=== PATIENT | male | born 1960 | race Caucasian/White ===

== ENCOUNTER 2018-12-14 11:02 | Emergency (ER) | payer SELFPAY ==
[~2018-12-14] VITALS: Ht 177.8 cm; Wt 77.1 kg
[~2018-12-14 11:02] MED LIST: ASPI81CH PO; ATOR80 PO; CLOP75 PO; HYDACE5 PO; IBUP600 PO; LISI20 PO; METO25 PO; RXCLIN PO; SULTRIDS PO
[2018-12-14 11:37] LABS: BASOPHILS ABSOLUTE AUTO 0.09 K/mm3 (0.00-0.23); BASOPHILS PERCENT AUTO 2 % (0-2); EOSINOPHILS PERCENT AUTO 4 % (0-6); Hematocrit 42.8 % (37.0-53.0); Hemoglobin 14.3 g/dL (13.5-17.5); IMMATURE GRAN ABSOLUTE AUTO 0.01 K/mm3 (0.00-0.10); IMMATURE GRAN PERCENT AUTO 0 % (0-1); LYMPHOCYTES ABSOLUTE AUTO 1.23 K/mm3 (0.84-5.20); LYMPHOCYTES PERCENT AUTO 27 % (21-46); MONOCYTES ABSOLUTE AUTO 0.34 K/mm3 (0.16-1.47); MONOCYTES PERCENT AUTO 7 % (4-13); Mean Corpuscular HGB 31.5 pg (26.0-34.0); Mean Corpuscular HGB Conc 33.4 g/dL (31.5-36.5); Mean Corpuscular Volume 94 fL (80-100); Mean Platelet Volume 9.1 fL (9.1-12.4); NEUTROPHILS ABSOLUTE AUTO 2.76 K/mm3 (1.96-9.15); NEUTROPHILS PERCENT AUTO 60 % (41-73); Platelet Count 206 K/mm3 (150-400); RDW Coefficient Variation 13.2 % (11.7-14.2); RDW Standard Deviation 46.1 fL (35.1-46.3); Red Blood Cell Count 4.54 M/mm3 (4.30-5.90); White Blood Cell Count 4.63 K/mm3 (4.00-11.30)
[2018-12-14 12:07] LABS: Alanine Aminotransfer (ALT/SGP 18 U/L (12-78); Albumin/Globulin Ratio 1.3 (0.8-1.8); Alk Phos 52 U/L (50-136); Anion Gap 6 mmol/L (6-16); Aspartate Aminotrans (AST/SGOT 12 U/L (12-37); Bilirubin, Total 0.4 mg/dL (0.1-1.0); Blood Urea Nitrogen 15 mg/dL (8-24); Bun/Creatinine Ratio 17.5 (12.0-20.0); CO2, Blood 27 mmol/L (21-32); Calcium, Blood 8.2 mg/dL (8.5-10.1); Chloride, Blood 108 mmol/L (98-108); Creatinine, Blood 0.86 mg/dL (0.60-1.20); Globulin, Blood 3.1 g/dL (2.2-4.0); Glomerular Filtration Rate >60 (60-); Glucose, Blood 82 mg/dL (70-99); Potassium, Blood 3.7 mmol/L (3.5-5.5); Sodium, Blood 141 mmol/L (136-145); Total Protein, Blood 7.1 g/dL (6.4-8.2)
[2018-12-14 13:16] LABS: Source, Urine Clean Catch
[2018-12-14 13:39] LABS: Appearance, Urine Clear (Clear); Bilirubin, Urine Neg (Neg); Blood, Urine 2+ (Neg); Color, Urine Yellow (P-Yellow); Glucose Qualitative, Urine Neg (Neg); Ketones, Urine Neg (Neg); Leukocyte Esterase, Urine Neg (Neg); Nitrite, Urine Neg (Neg); Protein, Urine Neg (Neg); Urobilinogen, Urine NORM (Normal)
[2018-12-14 13:49] LABS: Bacteria Few /hpf; White Blood Cells, Urine 0-2 /hpf (0-5)
[2018-12-14 13:50] LABS: Mucus Light (0-Heavy); Squamous Epithelial Cells Rare /hpf (Few)
[2018-12-14] MEDS ORDERED: Percocet 10-321 EACH PO (15:12)
[2018-12-14] MEDS ORDERED: Robaxin-750750 MG PO (15:12)
== END 2018-12-14 15:42 | disposition home or self-care (01) ==
LOC: ER 11:02
PROVIDERS: Physician Assistant
DX: M79.604 Pain in right leg (principal); M87.88 Other osteonecrosis, other site; I25.2 Old myocardial infarction; Z88.0 Allergy status to penicillin; Z88.1 Allergy status to other antibiotic agents; Z88.5 Allergy status to narcotic agent; Z88.2 Allergy status to sulfonamides
CPT/HCPCS: 36415; 74176; 80053; 81001; 85025; 93926; 99284-25

== ENCOUNTER 2019-03-07 10:22 | Emergency (ER) | payer SELFPAY ==
[~2019-03-07] VITALS: Ht 177.8 cm; Wt 79.4 kg
[~2019-03-07 10:22] MED LIST changes: +Percocet 10-321 EACH PO; +Robaxin-750750 MG PO
[2019-03-07] MEDS ORDERED: Ciloxan5 ML RIGHTEYE (11:09)
== END 2019-03-07 11:13 | disposition home or self-care (01) ==
LOC: ER 10:22
DX: S05.01XA Injury of conjunctiva and corneal abrasion without foreign body, right eye, initial encounter (principal); H16.001 Unspecified corneal ulcer, right eye; W22.8XXA Striking against or struck by other objects, initial encounter; Z88.0 Allergy status to penicillin; Z88.1 Allergy status to other antibiotic agents; Z88.5 Allergy status to narcotic agent; Z88.2 Allergy status to sulfonamides; I25.2 Old myocardial infarction; F17.220 Nicotine dependence, chewing tobacco, uncomplicated

== ENCOUNTER 2019-05-26 20:11 | Emergency (ER) | payer SELFPAY ==
[~2019-05-26] VITALS: Ht 177.8 cm; Wt 6.8 kg
[~2019-05-26 20:11] MED LIST changes: +Ciloxan5 ML RIGHTEYE
[2019-05-26] MEDS ORDERED: ASPI81CH PO (20:35)
[2019-05-26 20:54] LABS: BASOPHILS PERCENT AUTO 1 % (0-2); EOSINOPHILS ABSOLUTE AUTO 0.83 K/mm3 (0.00-0.68); EOSINOPHILS PERCENT AUTO 9 % (0-6); Hematocrit 46.8 % (37.0-53.0); Hemoglobin 15.2 g/dL (13.5-17.5); IMMATURE GRAN ABSOLUTE AUTO 0.03 K/mm3 (0.00-0.10); IMMATURE GRAN PERCENT AUTO 0 % (0-1); LYMPHOCYTES ABSOLUTE AUTO 2.02 K/mm3 (0.84-5.20); LYMPHOCYTES PERCENT AUTO 21 % (21-46); MONOCYTES ABSOLUTE AUTO 0.65 K/mm3 (0.16-1.47); MONOCYTES PERCENT AUTO 7 % (4-13); Mean Corpuscular HGB 31.5 pg (26.0-34.0); Mean Corpuscular HGB Conc 32.5 g/dL (31.5-36.5); Mean Corpuscular Volume 97 fL (80-100); Mean Platelet Volume 9.1 fL (9.1-12.4); NEUTROPHILS ABSOLUTE AUTO 5.82 K/mm3 (1.96-9.15); NEUTROPHILS PERCENT AUTO 62 % (41-73); Platelet Count 254 K/mm3 (150-400); RDW Coefficient Variation 12.8 % (11.7-14.2); RDW Standard Deviation 46.3 fL (35.1-46.3); Red Blood Cell Count 4.82 M/mm3 (4.30-5.90); White Blood Cell Count 9.45 K/mm3 (4.00-11.30)
[2019-05-26 21:16] LABS: Alanine Aminotransfer (ALT/SGP 23 U/L (12-78); Albumin, Blood 3.7 g/dL (3.4-5.0); Alk Phos 67 U/L (50-136); Anion Gap 6 mmol/L (6-16); Aspartate Aminotrans (AST/SGOT 16 U/L (12-37); Bilirubin, Total 0.3 mg/dL (0.1-1.0); Blood Urea Nitrogen 15 mg/dL (8-24); Bun/Creatinine Ratio 18.1 (12.0-20.0); CO2, Blood 29 mmol/L (21-32); Calcium, Blood 8.1 mg/dL (8.5-10.1); Chloride, Blood 107 mmol/L (98-108); Creatinine, Blood 0.83 mg/dL (0.60-1.20); Globulin, Blood 3.6 g/dL (2.2-4.0); Glomerular Filtration Rate >60 (60-); Glucose, Blood 71 mg/dL (70-99); Potassium, Blood 3.9 mmol/L (3.5-5.5); Sodium, Blood 142 mmol/L (136-145); Total Protein, Blood 7.3 g/dL (6.4-8.2)
[2019-05-26] MEDS ORDERED: TRIA15CR3 TOP (21:20)
[2019-05-26] MEDS ORDERED: CEPH500 PO (21:20)
== END 2019-05-26 21:52 | disposition home or self-care (01) ==
LOC: ER 20:11
PROVIDERS: Physician Assistant
DX: L20.9 Atopic dermatitis, unspecified (principal); L03.116 Cellulitis of left lower limb; L03.115 Cellulitis of right lower limb; Z88.0 Allergy status to penicillin; Z88.1 Allergy status to other antibiotic agents; Z88.5 Allergy status to narcotic agent; Z88.2 Allergy status to sulfonamides; I25.2 Old myocardial infarction; Z79.82 Long term (current) use of aspirin; F17.220 Nicotine dependence, chewing tobacco, uncomplicated
CPT/HCPCS: 36415; 80053; 85025; 96374; 99283-25; J1200

== ENCOUNTER 2019-06-18 14:40 | Emergency (ER) | payer SELFPAY ==
[~2019-06-18] VITALS: Ht 177.8 cm; Wt 61.2 kg
[~2019-06-18 14:40] MED LIST changes: +CEPH500 PO; +TRIA15CR3 TOP
[2019-06-18] MEDS ORDERED: Vistaril25 MG PO (15:17)
[2019-06-18] MEDS ORDERED: Permethrin60 GM TOP (15:17)
== END 2019-06-18 15:22 | disposition home or self-care (01) ==
LOC: ER 14:40
DX: R21 Rash and other nonspecific skin eruption (principal); I25.2 Old myocardial infarction; Z79.82 Long term (current) use of aspirin; Z88.0 Allergy status to penicillin; Z88.1 Allergy status to other antibiotic agents; Z88.2 Allergy status to sulfonamides; Z88.5 Allergy status to narcotic agent
CPT/HCPCS: 99282

== ENCOUNTER 2019-08-17 06:05 | Emergency (ER) | payer SELFPAY ==
[~2019-08-17] VITALS: Ht 175.3 cm; Wt 72.6 kg
[~2019-08-17 06:05] MED LIST changes: +Permethrin60 GM TOP; +Vistaril25 MG PO
[2019-08-17] MEDS ORDERED: Cyclobenzaprine5 MG PO (06:29)
[2019-08-17] MEDS ORDERED: HYDR1TAB94 PO (06:29)
== END 2019-08-17 06:44 | disposition home or self-care (01) ==
LOC: ER 06:05
DX: M16.11 Unilateral primary osteoarthritis, right hip (principal); F17.200 Nicotine dependence, unspecified, uncomplicated; Z88.0 Allergy status to penicillin; Z88.1 Allergy status to other antibiotic agents; Z88.5 Allergy status to narcotic agent; Z88.2 Allergy status to sulfonamides; Z79.899 Other long term (current) drug therapy; Z79.82 Long term (current) use of aspirin
CPT/HCPCS: 73502; 99283-25

== ENCOUNTER 2019-08-29 08:18 | Emergency (ER) | payer OTHER ==
[~2019-08-29] VITALS: Ht 177.8 cm; Wt 74.8 kg
[~2019-08-29 08:18] MED LIST changes: +Cyclobenzaprine5 MG PO; +HYDR1TAB94 PO
[2019-08-29] MEDS ORDERED: Percocet 7.5-31 EACH PO (10:04)
[2019-08-29] MEDS ORDERED: NAPROSYN500 MG PO (10:04)
== END 2019-08-29 10:28 | disposition home or self-care (01) ==
LOC: ER 08:18
DX: M16.11 Unilateral primary osteoarthritis, right hip (principal); Z88.0 Allergy status to penicillin; Z88.1 Allergy status to other antibiotic agents; Z88.5 Allergy status to narcotic agent; Z88.2 Allergy status to sulfonamides; Z79.899 Other long term (current) drug therapy; Z79.82 Long term (current) use of aspirin; Z87.891 Personal history of nicotine dependence
CPT/HCPCS: 96372; 99283-25; J1885

== ENCOUNTER 2019-10-28 15:15 | Emergency (ER) | payer OTHER ==
[~2019-10-28] VITALS: Ht 175.3 cm; Wt 72.6 kg
[~2019-10-28 15:15] MED LIST changes: +NAPROSYN500 MG PO; +Percocet 7.5-31 EACH PO
[2019-10-28 15:41] LABS: BASOPHILS ABSOLUTE AUTO 0.08 K/mm3 (0.00-0.23); BASOPHILS PERCENT AUTO 1 % (0-2); EOSINOPHILS ABSOLUTE AUTO 0.02 K/mm3 (0.00-0.68); EOSINOPHILS PERCENT AUTO 0 % (0-6); Hematocrit 52.5 % (37.0-53.0); Hemoglobin 17.5 g/dL (13.5-17.5); IMMATURE GRAN ABSOLUTE AUTO 0.02 K/mm3 (0.00-0.10); IMMATURE GRAN PERCENT AUTO 0 % (0-1); LYMPHOCYTES ABSOLUTE AUTO 1.39 K/mm3 (0.84-5.20); LYMPHOCYTES PERCENT AUTO 21 % (21-46); MONOCYTES ABSOLUTE AUTO 0.49 K/mm3 (0.16-1.47); MONOCYTES PERCENT AUTO 7 % (4-13); Mean Corpuscular HGB 31.4 pg (26.0-34.0); Mean Corpuscular HGB Conc 33.3 g/dL (31.5-36.5); Mean Corpuscular Volume 94 fL (80-100); Mean Platelet Volume 9.2 fL (9.1-12.4); NEUTROPHILS ABSOLUTE AUTO 4.73 K/mm3 (1.96-9.15); NEUTROPHILS PERCENT AUTO 70 % (41-73); Platelet Count 261 K/mm3 (150-400); RDW Coefficient Variation 13.6 % (11.7-14.2); RDW Standard Deviation 47.5 fL (35.1-46.3); Red Blood Cell Count 5.58 M/mm3 (4.30-5.90); White Blood Cell Count 6.73 K/mm3 (4.00-11.30)
[2019-10-28 15:55] LABS: International Normalized Ratio 1.05; Prothrombin Time Results 11.2 Sec (9.7-11.5)
[2019-10-28 16:06] LABS: Alanine Aminotransfer (ALT/SGP 26 U/L (12-78); Albumin, Blood 4.3 g/dL (3.4-5.0); Alk Phos 65 U/L (50-136); Anion Gap 9 mmol/L (6-16); Aspartate Aminotrans (AST/SGOT 21 U/L (12-37); Bilirubin, Total 0.5 mg/dL (0.1-1.0); Blood Urea Nitrogen 19 mg/dL (8-24); Bun/Creatinine Ratio 19.6 (12.0-20.0); CO2, Blood 23 mmol/L (21-32); Calcium, Blood 9.1 mg/dL (8.5-10.1); Chloride, Blood 105 mmol/L (98-108); Creatinine, Blood 0.97 mg/dL (0.60-1.20); Globulin, Blood 4.3 g/dL (2.2-4.0); Glomerular Filtration Rate >60 (60-); Glucose, Blood 200 mg/dL (70-99); Potassium, Blood 4.1 mmol/L (3.5-5.5); Sodium, Blood 137 mmol/L (136-145); Total Protein, Blood 8.6 g/dL (6.4-8.2); Troponin I <0.015 ng/mL (0.000-0.040)
== END 2019-10-28 18:48 | disposition home or self-care (01) ==
LOC: ER 15:15
PROVIDERS: Physician Assistant
DX: J06.9 Acute upper respiratory infection, unspecified (principal); Z88.0 Allergy status to penicillin; Z88.5 Allergy status to narcotic agent; Z88.2 Allergy status to sulfonamides; Z88.1 Allergy status to other antibiotic agents
CPT/HCPCS: 36415; 71046; 80053; 83880; 84484; 85025; 85610; 93005; 93010; 96360; 99285-25; J7030

== ENCOUNTER 2020-09-04 09:01 | Day surgery (SDC) | payer OTHER ==
[~2020-09-04] VITALS: Ht 177.8 cm; Wt 77.7 kg
[~2020-09-04 09:01] MED LIST changes: +ATOR20 PO; +METO25ER PO
--- NOTE | 2020-09-04 09:56 | NUR ---
Ambulatory in Day Surgery History, Chart, Medications and Allergies reviewed before start of procedure. Pre-Op teaching done. Pt verbalizes understanding. Lungs with expiratory wheeze. Denies SOB.
--- NOTE | 2020-09-04 15:15 | NUR ---
PT ARRIVED TO UNIT FROM PACU. A&OX3. HYPOTENSIVE W/SBP IN 80S. IV FLUIDS INFUSING. PT NUMB FROM WAIST DOWN. UNABLE TO WIGGLE TOES. PPP. DRESSING TO R HIP CDI. CALL LIGHT IN REACH. DENIES PAIN, N/V OR SOB.
--- NOTE | 2020-09-04 17:02 | NUR ---
HYPOTENSIVE. SBP LOW 80S. PLACED MESSAGE OUT TO DR GOLDEN.
[2020-09-04 19:24] LABS: BASOPHILS ABSOLUTE AUTO 0.04 K/mm3 (0.00-0.23); BASOPHILS PERCENT AUTO 0 % (0-2); EOSINOPHILS PERCENT AUTO 0 % (0-6); Hematocrit 34.4 % (37.0-53.0); Hemoglobin 11.5 g/dL (13.5-17.5); IMMATURE GRAN ABSOLUTE AUTO 0.06 K/mm3 (0.00-0.10); IMMATURE GRAN PERCENT AUTO 1 % (0-1); LYMPHOCYTES ABSOLUTE AUTO 0.53 K/mm3 (0.84-5.20); LYMPHOCYTES PERCENT AUTO 4 % (21-46); MONOCYTES ABSOLUTE AUTO 0.12 K/mm3 (0.16-1.47); MONOCYTES PERCENT AUTO 1 % (4-13); Mean Corpuscular HGB 31.7 pg (26.0-34.0); Mean Corpuscular HGB Conc 33.4 g/dL (31.5-36.5); Mean Corpuscular Volume 95 fL (80-100); Mean Platelet Volume 9.6 fL (9.1-12.4); NEUTROPHILS ABSOLUTE AUTO 12.19 K/mm3 (1.96-9.15); NEUTROPHILS PERCENT AUTO 94 % (41-73); Platelet Count 190 K/mm3 (150-400); RDW Coefficient Variation 12.4 % (11.7-14.2); RDW Standard Deviation 43.6 fL (35.1-46.3); Red Blood Cell Count 3.63 M/mm3 (4.30-5.90); White Blood Cell Count 12.94 K/mm3 (4.00-11.30)
--- NOTE | 2020-09-04 19:35 | NUR ---
SUMMARY PT ARRIVED TO UNIT FROM PACU THIS AFTERNOON. SBP IN 80S CONSISTENTLY, SLOWLY DROPPING TO LOW 80S. PT PALE BUT OTHERWISE ASYMPTOMATIC. SPOKE TO DR GOLDEN AND OBTAINED ORDER FOR HOSPITALIST CONSULT. SPOKE TO DR TRAN AND ORDERS OBTAINED. PT HAS DENIED PAIN. ABLE TO WIGGLE LEGS THIS EVENING BUT DID NOT GET UP FOR DAY SHIFT. CALL LIGHT IN REACH. REPORT GIVEN TO NOC SHIFT.
[2020-09-04 19:42] LABS: Anion Gap 4 mmol/L (6-16); Blood Urea Nitrogen 18 mg/dL (8-24); Bun/Creatinine Ratio 20.1 (12.0-20.0); CO2, Blood 27 mmol/L (21-32); Calcium, Blood 7.7 mg/dL (8.5-10.1); Chloride, Blood 111 mmol/L (98-108); Glomerular Filtration Rate >60 (60-); Glucose, Blood 165 mg/dL (70-99); Sodium, Blood 142 mmol/L (136-145)
[2020-09-05 04:46] LABS: BASOPHILS ABSOLUTE AUTO 0.03 K/mm3 (0.00-0.23); BASOPHILS PERCENT AUTO 0 % (0-2); EOSINOPHILS ABSOLUTE AUTO 0.01 K/mm3 (0.00-0.68); EOSINOPHILS PERCENT AUTO 0 % (0-6); Hematocrit 33.8 % (37.0-53.0); Hemoglobin 11.3 g/dL (13.5-17.5); IMMATURE GRAN ABSOLUTE AUTO 0.11 K/mm3 (0.00-0.10); IMMATURE GRAN PERCENT AUTO 1 % (0-1); LYMPHOCYTES ABSOLUTE AUTO 0.62 K/mm3 (0.84-5.20); LYMPHOCYTES PERCENT AUTO 3 % (21-46); MONOCYTES PERCENT AUTO 3 % (4-13); Mean Corpuscular HGB 31.7 pg (26.0-34.0); Mean Corpuscular HGB Conc 33.4 g/dL (31.5-36.5); Mean Corpuscular Volume 95 fL (80-100); Mean Platelet Volume 9.7 fL (9.1-12.4); NEUTROPHILS ABSOLUTE AUTO 17.02 K/mm3 (1.96-9.15); NEUTROPHILS PERCENT AUTO 93 % (41-73); Platelet Count 191 K/mm3 (150-400); RDW Coefficient Variation 12.3 % (11.7-14.2); RDW Standard Deviation 42.8 fL (35.1-46.3); Red Blood Cell Count 3.57 M/mm3 (4.30-5.90); White Blood Cell Count 18.29 K/mm3 (4.00-11.30)
--- NOTE | 2020-09-05 05:07 | NUR ---
SHIFT SUMMARY LYING IN SEMI FOWLERS WITH EYES CLOSED. HAS RESTED THIS SHIFT. PAIN MANAGED WITH TYLENOL AND TORADOL PER MD ORDERS. DRESSING TO RIGHT HIP IS C/D/I. VS HAVE REMAINED STABLE SINCE COMPLETION OF FLUID BOLUS'. DENIES PAIN, DISCOMFORT OF FURTHER NEEDS AT THIS TIME. NO FURTHER SIGNIFICANT CHANGES THIS SHIFT. SAFETY MEASURES IN PLACE. WILL CONTINUE TO MONITOR AND GIVE HAND OFF TO ONCOMING SHIFT USING SBAR.
[2020-09-05 05:15] LABS: Anion Gap 6 mmol/L (6-16); Blood Urea Nitrogen 15 mg/dL (8-24); Bun/Creatinine Ratio 19.3 (12.0-20.0); CO2, Blood 23 mmol/L (21-32); Calcium, Blood 8.4 mg/dL (8.5-10.1); Chloride, Blood 112 mmol/L (98-108); Creatinine, Blood 0.78 mg/dL (0.60-1.20); Glomerular Filtration Rate >60 (60-); Glucose, Blood 157 mg/dL (70-99); Potassium, Blood 4.3 mmol/L (3.5-5.5); Sodium, Blood 141 mmol/L (136-145)
[2020-09-05] MEDS ORDERED: ASPI81CH PO (08:39)
[2020-09-05] MEDS ORDERED: OXYC5 PO (08:40)
--- NOTE | 2020-09-05 13:11 | NUR ---
PT DISCHARGED REVIEWED DC INSTRUCTIONS W/PT AND SPOUSE. SPOUSE BROUGHT PT'S WALKER TO ROOM. DC'D IV, CATHETER INTACT. PT LEFT UNIT W/POSSESSIONS, POLAR PACK/CORD AND DC INSTRUCTIONS IN HAND IN WC.
== END 2020-09-05 12:45 | disposition home or self-care (01) ==
LOC: ORD 09:01 → SURS 09:01 → ORSCMMR 09:01 → ORD 11:15 → SURS 15:15 → ORD 09-05 12:45
PROVIDERS: Internal Medicine; Orthopaedic Surgery
PROC: 0SR90J9 Replacement of Right Hip Joint with Synthetic Substitute, Cemented, Open Approach (ICD-10-PCS; principal; 2020-09-04 11:15)
DX: M16.11 Unilateral primary osteoarthritis, right hip (principal); Z23 Encounter for immunization; I10 Essential (primary) hypertension; I25.2 Old myocardial infarction; Z79.899 Other long term (current) drug therapy; Z79.82 Long term (current) use of aspirin
CPT/HCPCS: 36415; 72170; 80048; 83735; 85025; 88300; 93005; 93010; 97110; 97112; 97116; 97161; A9270; A9270-GY; C1713; C1776; C9113; J0171; J0690; J0735; J1100; J1885; J2250; J2405; J2704; J2795; J3010; J7030; J7120; Q2038

== ENCOUNTER 2021-09-11 10:38 | Emergency (ER) | payer OTHER ==
[~2021-09-11] VITALS: Ht 177.8 cm; Wt 77.1 kg
[~2021-09-11 10:38] MED LIST changes: +OXYC5 PO
[2021-09-11 11:38] LABS: BASOPHILS ABSOLUTE AUTO 0.06 K/mm3 (0.00-0.23); BASOPHILS PERCENT AUTO 1 % (0-2); EOSINOPHILS ABSOLUTE AUTO 0.12 K/mm3 (0.00-0.68); EOSINOPHILS PERCENT AUTO 1 % (0-6); IMMATURE GRAN ABSOLUTE AUTO 0.03 K/mm3 (0.00-0.10); IMMATURE GRAN PERCENT AUTO 0 % (0-1); LYMPHOCYTES ABSOLUTE AUTO 1.87 K/mm3 (0.84-5.20); LYMPHOCYTES PERCENT AUTO 18 % (21-46); MONOCYTES ABSOLUTE AUTO 1.09 K/mm3 (0.16-1.47); MONOCYTES PERCENT AUTO 11 % (4-13); Mean Corpuscular HGB 31.1 pg (26.0-34.0); Mean Corpuscular HGB Conc 34.8 g/dL (31.5-36.5); Mean Corpuscular Volume 90 fL (80-100); Mean Platelet Volume 9.4 fL (9.1-12.4); NEUTROPHILS ABSOLUTE AUTO 7.22 K/mm3 (1.96-9.15); NEUTROPHILS PERCENT AUTO 69 % (41-73); Platelet Count 193 K/mm3 (150-400); RDW Coefficient Variation 12.8 % (11.7-14.2); RDW Standard Deviation 42.5 fL (35.1-46.3); Red Blood Cell Count 5.14 M/mm3 (4.30-5.90); White Blood Cell Count 10.39 K/mm3 (4.00-11.30)
[2021-09-11 12:01] LABS: Alanine Aminotransfer (ALT/SGP 30 U/L (12-78); Albumin, Blood 3.4 g/dL (3.4-5.0); Albumin/Globulin Ratio 0.8 (0.8-1.8); Alk Phos 54 U/L (50-136); Anion Gap 10 mmol/L (6-16); Aspartate Aminotrans (AST/SGOT 24 U/L (12-37); Bilirubin, Total 0.9 mg/dL (0.1-1.0); Blood Urea Nitrogen 15 mg/dL (8-24); Bun/Creatinine Ratio 18.1 (12.0-20.0); CO2, Blood 23 mmol/L (21-32); Calcium, Blood 8.7 mg/dL (8.5-10.1); Chloride, Blood 104 mmol/L (98-108); Creatinine, Blood 0.83 mg/dL (0.60-1.20); Globulin, Blood 4.1 g/dL (2.2-4.0); Glomerular Filtration Rate >60 (60-); Glucose, Blood 119 mg/dL (70-99); Potassium, Blood 3.4 mmol/L (3.5-5.5); Sodium, Blood 137 mmol/L (136-145); Total Protein, Blood 7.5 g/dL (6.4-8.2); Troponin I <0.015 ng/mL (0.000-0.040)
== END 2021-09-11 15:04 | disposition home or self-care (01) ==
LOC: ER 10:38
PROVIDERS: Emergency Medicine
DX: M25.511 Pain in right shoulder (principal); G89.29 Other chronic pain; R05.9 Cough, unspecified; Z88.1 Allergy status to other antibiotic agents; Z88.0 Allergy status to penicillin; Z88.5 Allergy status to narcotic agent; Z88.2 Allergy status to sulfonamides; Z79.899 Other long term (current) drug therapy
CPT/HCPCS: 71046; 80053; 84484; 85025; 93005; 93010; 99284-25

== ENCOUNTER → 2023-05-28 | Outpatient (CLI) | payer OTHER | LOC: LAB SHORT 13:21 → LAB 13:21 | DX: L03.115 Cellulitis of right lower limb (principal) | CPT/HCPCS: 87070; 87077; 87147; 87186; 87205 ==

== ENCOUNTER → 2024-04-22 | Outpatient (CLI) | payer OTHER | END | disposition home or self-care (01) | LOC: LAB SHORT 10:33 → LAB 10:33 | DX: L03.114 Cellulitis of left upper limb (principal) | CPT/HCPCS: 87070; 87075; 87077; 87147; 87186; 87205 ==

== ENCOUNTER 2024-06-13 17:52 | Inpatient (IN) | payer OTHER ==
[~2024-06-13] VITALS: Ht 177.8 cm; Wt 79.6 kg
[~2024-06-13 17:52] MED LIST changes: -ATOR20 PO; +Aspir 8181 MG PO; +LIPITOR80 MG PO
[2024-06-13 18:26] LABS: BASOPHILS ABSOLUTE AUTO 0.09 K/mm3 (0.00-0.23); BASOPHILS PERCENT AUTO 2 % (0-2); EOSINOPHILS PERCENT AUTO 3 % (0-6); Hematocrit 45.4 % (37.0-53.0); Hemoglobin 15.1 g/dL (13.5-17.5); IMMATURE GRAN ABSOLUTE AUTO 0.01 K/mm3 (0.00-0.10); IMMATURE GRAN PERCENT AUTO 0 % (0-1); LYMPHOCYTES ABSOLUTE AUTO 1.69 K/mm3 (0.84-5.20); LYMPHOCYTES PERCENT AUTO 28 % (21-46); MONOCYTES ABSOLUTE AUTO 0.35 K/mm3 (0.16-1.47); MONOCYTES PERCENT AUTO 6 % (4-13); Mean Corpuscular HGB 31.1 pg (26.0-34.0); Mean Corpuscular HGB Conc 33.3 g/dL (31.5-36.5); Mean Corpuscular Volume 93 fL (80-100); Mean Platelet Volume 9.5 fL (9.1-12.4); NEUTROPHILS ABSOLUTE AUTO 3.62 K/mm3 (1.96-9.15); NEUTROPHILS PERCENT AUTO 61 % (41-73); Platelet Count 252 K/mm3 (150-400); RDW Coefficient Variation 13.1 % (11.7-14.2); RDW Standard Deviation 44.5 fL (35.1-46.3); Red Blood Cell Count 4.86 M/mm3 (4.30-5.90); White Blood Cell Count 5.96 K/mm3 (4.00-11.30)
[2024-06-13 18:44] LABS: Albumin, Blood 3.8 g/dL (3.4-5.0); Albumin/Globulin Ratio 1.1 (0.8-1.8); Bilirubin, Total 0.7 mg/dL (0.1-1.0); Calcium, Blood 8.9 mg/dL (8.5-10.1); Creatinine, Blood 1.15 mg/dL (0.60-1.20); Globulin, Blood 3.5 g/dL (2.2-4.0); Magnesium, Blood 2.5 mg/dL (1.6-2.4); Potassium, Blood 4.1 mmol/L (3.5-5.5); Total Protein, Blood 7.3 g/dL (6.4-8.2)
[2024-06-13] MEDS ORDERED: Aspirin 325 MG Tab PO ONE (20:20)
[2024-06-13] MEDS ORDERED: Nitroglycerin 0.4 MG SUBL SL PRN ×2 (20:20→20:35)
[2024-06-13] MEDS ORDERED: Ondansetron HCl 2 MG / ML 2ML Vial IV PRN (20:30)
[2024-06-13] MEDS ORDERED: FentaNYL Citrate 50 MCG/ML 2 ML Injection IV PRN (20:40)
[2024-06-13] MEDS ORDERED: Clopidogrel Bisulfate 300 MG Cap PO ONE (21:00)
[2024-06-13] MEDS ORDERED: NS 1,000 ML IV SCH (21:00)
[2024-06-13] MEDS ORDERED: Atorvastatin 40 MG Tab PO SCH (21:00)
--- NOTE | 2024-06-13 22:25 | NUR ---
ADMIT NOTE: PATIENT ARRIVED TO PCU FROM ER ON A GURNEY AT APPROX 2123. PT TRANSFERED VIA SBA FROM STAFF TO PCU BED WITHOUT DIFFCULTY. HE IS A/OX4 ABLE TO MAKE HIS NEEDS KNOWN. HE DENIES CHEST PAIN ON ARRIVAL TO PCU. HIS BP IS STABLE AND TELE SHOWS SINUS WILLY IN THE 50-60S. HE IS ON RA WITH SPO2>95%, DENIES SOB. HIS LAC IV IS PATENT AND FLUIDS ARE RUNNING PER EMAR. PT STATED DESIRE TO LEAVE HOSPITAL, THIS RN EDUCATED PATIENT ON NEED TO STAY FOR ANGIO IN AM. PT AGREED TO STAY. PT THEN PROCEEDS TO PLACE TOBACCO PRODUCTS IN MOUTH. THIS RN EDUCATED PT THIS HOS[facility] IS A TOBACCO FREE [facility]. PT REFUSED TO SPIT OUT TOBACCO. NARCOTICS DETECTIVE TO SPEAK WITH PATIENT, PT AGREED TO SPIT OUT TOBACCO AND EDUCATED AGAIN THIS IS A TOBACCO FREE CAMPUS.
[2024-06-13 23:17] LABS: Anti-Xa UFH, PHA Monitoring <0.10 IU/mL; International Normalized Ratio 1.07; Prothrombin Time Results 11.4 Sec (9.7-11.5)
[2024-06-13] MEDS ORDERED: Heparin Sodium 5000 Units/ML 1ML MDV IV ONE (23:50)
[2024-06-13] MEDS ORDERED: Heparin Sodium,Porcine/0.5 NS 500 ML IV SCH (23:50)
[2024-06-14] VITALS (18 sets, daily range): BP systolic 91–134; BP diastolic 55–89
--- NOTE | 2024-06-14 04:41 | NUR ---
SHIFT NOTE: NO ACUTE EVENTS SINCE ARRIVAL. PT RESTING WITH EVEN UNLABORED RESPIRATIONS. FLUIDS AND HEPARIN RUNNING PER EMAR. WILL CONTINUE TO MONITOR AND REPORT TO ONCOMING RN
[2024-06-14 06:12] LABS: BASOPHILS ABSOLUTE AUTO 0.07 K/mm3 (0.00-0.23); BASOPHILS PERCENT AUTO 1 % (0-2); EOSINOPHILS ABSOLUTE AUTO 0.23 K/mm3 (0.00-0.68); EOSINOPHILS PERCENT AUTO 4 % (0-6); Hematocrit 42.8 % (37.0-53.0); Hemoglobin 14.5 g/dL (13.5-17.5); IMMATURE GRAN ABSOLUTE AUTO 0.01 K/mm3 (0.00-0.10); IMMATURE GRAN PERCENT AUTO 0 % (0-1); LYMPHOCYTES ABSOLUTE AUTO 1.84 K/mm3 (0.84-5.20); LYMPHOCYTES PERCENT AUTO 36 % (21-46); MONOCYTES ABSOLUTE AUTO 0.37 K/mm3 (0.16-1.47); MONOCYTES PERCENT AUTO 7 % (4-13); Mean Corpuscular HGB 31.5 pg (26.0-34.0); Mean Corpuscular HGB Conc 33.9 g/dL (31.5-36.5); Mean Corpuscular Volume 93 fL (80-100); Mean Platelet Volume 9.3 fL (9.1-12.4); NEUTROPHILS ABSOLUTE AUTO 2.66 K/mm3 (1.96-9.15); NEUTROPHILS PERCENT AUTO 51 % (41-73); Platelet Count 209 K/mm3 (150-400); RDW Coefficient Variation 13.2 % (11.7-14.2); RDW Standard Deviation 44.6 fL (35.1-46.3); Red Blood Cell Count 4.61 M/mm3 (4.30-5.90); White Blood Cell Count 5.18 K/mm3 (4.00-11.30)
[2024-06-14 06:41] LABS: Albumin, Blood 3.4 g/dL (3.4-5.0); Albumin/Globulin Ratio 1.1 (0.8-1.8); Bilirubin, Total 1.2 mg/dL (0.1-1.0); Bun/Creatinine Ratio 24.2 (12.0-20.0); Calcium, Blood 8.5 mg/dL (8.5-10.1); Creatinine, Blood 0.87 mg/dL (0.60-1.20); Globulin, Blood 3.1 g/dL (2.2-4.0); Potassium, Blood 3.9 mmol/L (3.5-5.5); Total Protein, Blood 6.5 g/dL (6.4-8.2)
[2024-06-14] MEDS ORDERED: Dose Adjust by Pharmacy XX STA (08:05)
[2024-06-14] MEDS ORDERED: Heparin Sodium 5000 Units/ML 1ML MDV IV ONE (08:10)
[2024-06-14] MEDS ORDERED: Aspirin 81 MG Chew PO ONE (08:35)
[2024-06-14] MEDS ORDERED: Clopidogrel Bisulfate 75 MG Tab PO SCH (09:00)
[2024-06-14] MEDS ORDERED: Aspirin 81 MG Chew PO SCH (09:00)
[2024-06-14] MEDS ORDERED: Metoprolol Succinate 25 MG TABCR PO SCH (09:00)
[2024-06-14] MEDS ORDERED: NS 250 ML IV ONE (12:39)
[2024-06-14] MEDS ORDERED: Verapamil HCL 2.5 MG/ML 2ML Injection ONE (12:39)
[2024-06-14] MEDS ORDERED: Heparin Sodium 1000 Units/ML 10ML MDV ONE ×2 (12:39→13:58)
[2024-06-14] MEDS ORDERED: NS 1,000 ML IV ONE ×2 (12:39→12:52)
[2024-06-14] MEDS ORDERED: Nitroglycerin 2 MG/20 ML BTL ONE (12:40)
[2024-06-14] MEDS ORDERED: FentaNYL Citrate 50 MCG/ML 2 ML Injection ONE (13:12)
[2024-06-14] MEDS ORDERED: Midazolam HCl 1MG / ML 2ML Vial ONE (13:12)
[2024-06-14] MEDS ORDERED: Atropine Sulfate 0.1 MG/ML 10ML SYR ONE (13:23)
[2024-06-14] MEDS ORDERED: Clopidogrel Bisulfate 75 MG Tab ONE (14:47)
[2024-06-14] MEDS ORDERED: Potassium Chloride 10 Meq Tablet SA PO ONE (16:50)
--- NOTE | 2024-06-14 18:08 | NUR ---
SHIFT SUMMARY: PT HAS BEEN A&Ox4, ANSWERS QUESTIONS APPROPRIATELY, COOPERATIVE W/CARE. PT DENIES SOB, O2 SATS >95% ON RA. PT DENIES CP T/OUT THE DAY, SB/SR ON MONITOR W/RATE MOSTLY 50s-60s. PT TO/FROM SALES SYSTEMS ENGINEER, SEE PROCEDURE NOTES FOR DETAILS. R RADIAL SITE WNL, TR BAND FULLY DEFLATED AND WILL BE REMOVED 1 HR POST DEFLATION. PT SBA FOR AMBULATION D/TO CORDS/LINES MANAGEMENT, ALSO USING URINAL INDEPENDENTLY.
[2024-06-15 01:00] VITALS: BP 134/79
--- NOTE | 2024-06-15 02:23 | NUR ---
PATIENT UPDATE: PT REPORTED CHEST PAIN AT APPROX 2245. SMALL APPLIANCE ASSEMBLY SUPERVISOR WAS NOTIFIED, ORDERS RECEIVED FOR EKG, AND SUBLINGUAL NITRO. SEE EMAR FOR ADMINISTRATION DETAILS. AFTER 3 DOSES, PT REPORTED RELIEF AND WAS EDUCATED TO LET STAFF KNOW IF CHEST PAIN/PRESSURE RETURNED. VSS. WILL CONTINUE TO MONITOR AND PROVIDE CARE
[2024-06-15 04:00] VITALS: BP 99/60
[2024-06-15 04:05] LABS: BASOPHILS ABSOLUTE AUTO 0.07 K/mm3 (0.00-0.23); BASOPHILS PERCENT AUTO 1 % (0-2); EOSINOPHILS ABSOLUTE AUTO 0.25 K/mm3 (0.00-0.68); EOSINOPHILS PERCENT AUTO 4 % (0-6); Hematocrit 44.6 % (37.0-53.0); Hemoglobin 15.2 g/dL (13.5-17.5); IMMATURE GRAN ABSOLUTE AUTO 0.02 K/mm3 (0.00-0.10); IMMATURE GRAN PERCENT AUTO 0 % (0-1); LYMPHOCYTES PERCENT AUTO 24 % (21-46); MONOCYTES ABSOLUTE AUTO 0.52 K/mm3 (0.16-1.47); MONOCYTES PERCENT AUTO 8 % (4-13); Mean Corpuscular HGB 31.4 pg (26.0-34.0); Mean Corpuscular HGB Conc 34.1 g/dL (31.5-36.5); Mean Corpuscular Volume 92 fL (80-100); Mean Platelet Volume 9.4 fL (9.1-12.4); NEUTROPHILS ABSOLUTE AUTO 4.15 K/mm3 (1.96-9.15); NEUTROPHILS PERCENT AUTO 63 % (41-73); Platelet Count 216 K/mm3 (150-400); RDW Coefficient Variation 12.9 % (11.7-14.2); RDW Standard Deviation 43.7 fL (35.1-46.3); Red Blood Cell Count 4.84 M/mm3 (4.30-5.90); White Blood Cell Count 6.61 K/mm3 (4.00-11.30)
[2024-06-15 04:30] LABS: Albumin, Blood 3.5 g/dL (3.4-5.0); Albumin/Globulin Ratio 1.1 (0.8-1.8); Bilirubin, Total 0.9 mg/dL (0.1-1.0); Bun/Creatinine Ratio 16.7 (12.0-20.0); Calcium, Blood 8.5 mg/dL (8.5-10.1); Creatinine, Blood 1.08 mg/dL (0.60-1.20); Globulin, Blood 3.2 g/dL (2.2-4.0); Potassium, Blood 4.5 mmol/L (3.5-5.5); Total Protein, Blood 6.7 g/dL (6.4-8.2)
--- NOTE | 2024-06-15 05:21 | NUR ---
SHIFT NOTE: NO ACUTE CHANGES SINCE PREVIOUS NOTE. PT HAS NOT REPORTED ANY MORE CHEST PAIN. HE IN NSR WITH RATES IN THE 50-60. HIS BP STABLE. HE IS ON RA WITH NO REPORTS OF SOB. WILL CONTINUE TO MONITOR AND REPORT TO ONCOMING RN
[2024-06-15 07:47] VITALS: BP 131/77
[2024-06-15] MEDS ORDERED: Aspirin 81 MG TabEC PO SCH (09:00)
[2024-06-15] MEDS ORDERED: Metoprolol Succinate 25 MG TABCR PO SCH (09:00)
[2024-06-15] MEDS ORDERED: CLOP75 PO (11:19)
[2024-06-15] MEDS ORDERED: LIPITOR80 MG PO (11:30)
--- NOTE | 2024-06-15 12:07 | NUR ---
DISCHARGE: PT HAS BEEN CLEARED FOR DISCHARGE HOME. IV ACCESS DC'd WNL. PT DRESSES SELF. DC PAPERWORK AND INSTRUCTIONS PROVIDED, ALL QUESTIONS HAVE BEEN ANSWERED. PT AMBULATES FROM DEPARTEMENT W/OUT INCIDENT.
== END 2024-06-15 11:55 | disposition home or self-care (01) | DRG 322 ==
LOC: ER 17:52 → PCU 17:53
PROVIDERS: Family Medicine; Physician Assistant; ADMIT Internal Medicine
PROC: 027034Z Dilation of Coronary Artery, One Artery with Drug-eluting Intraluminal Device, Percutaneous Approach (ICD-10-PCS; principal; 2024-06-14)
PROC: 4A023N7 Measurement of Cardiac Sampling and Pressure, Left Heart, Percutaneous Approach (ICD-10-PCS; 2024-06-14)
PROC: B2111ZZ Fluoroscopy of Multiple Coronary Arteries using Low Osmolar Contrast (ICD-10-PCS; 2024-06-14)
PROC: B241ZZ3 Ultrasonography of Multiple Coronary Arteries, Intravascular (ICD-10-PCS; 2024-06-14)
PROC: 4A033BC Measurement of Arterial Pressure, Coronary, Percutaneous Approach (ICD-10-PCS; 2024-06-14)
DX: I25.110 Atherosclerotic heart disease of native coronary artery with unstable angina pectoris (principal); I10 Essential (primary) hypertension; E78.5 Hyperlipidemia, unspecified; I73.9 Peripheral vascular disease, unspecified; G89.29 Other chronic pain; I25.2 Old myocardial infarction; Z95.5 Presence of coronary angioplasty implant and graft; Z88.1 Allergy status to other antibiotic agents; Z88.2 Allergy status to sulfonamides; Z88.0 Allergy status to penicillin; Z88.5 Allergy status to narcotic agent; Z79.82 Long term (current) use of aspirin; Z79.899 Other long term (current) drug therapy; Z98.1 Arthrodesis status
CPT/HCPCS: 36415; 71046; 80053; 83735; 83880; 84484; 85025; 85347; 85520; 85610; 85730; 92978; 93005; 93010; 93458; 93571; 96374; 96376; 99152; 99153; 99285-25; A9270; C1725; C1753; C1769; C1874; C1887; C1894; C9600; G0378; J0461; J1644; J2250; J3010; J7030; J7050; Q9967

== ENCOUNTER 2024-07-30 17:39 | Emergency (ER) | payer OTHER ==
[~2024-07-30] VITALS: Ht 177.8 cm; Wt 81.7 kg
[2024-07-30 18:06] LABS: BASOPHILS ABSOLUTE AUTO 0.09 K/mm3 (0.00-0.23); BASOPHILS PERCENT AUTO 2 % (0-2); EOSINOPHILS ABSOLUTE AUTO 0.19 K/mm3 (0.00-0.68); EOSINOPHILS PERCENT AUTO 3 % (0-6); Hematocrit 41.9 % (37.0-53.0); Hemoglobin 14.4 g/dL (13.5-17.5); IMMATURE GRAN ABSOLUTE AUTO 0.01 K/mm3 (0.00-0.10); IMMATURE GRAN PERCENT AUTO 0 % (0-1); LYMPHOCYTES ABSOLUTE AUTO 1.33 K/mm3 (0.84-5.20); LYMPHOCYTES PERCENT AUTO 22 % (21-46); MONOCYTES ABSOLUTE AUTO 0.39 K/mm3 (0.16-1.47); MONOCYTES PERCENT AUTO 7 % (4-13); Mean Corpuscular HGB 31.6 pg (26.0-34.0); Mean Corpuscular HGB Conc 34.4 g/dL (31.5-36.5); Mean Corpuscular Volume 92 fL (80-100); Mean Platelet Volume 9.2 fL (9.1-12.4); NEUTROPHILS PERCENT AUTO 67 % (41-73); Platelet Count 219 K/mm3 (150-400); RDW Coefficient Variation 12.9 % (11.7-14.2); RDW Standard Deviation 43.5 fL (35.1-46.3); Red Blood Cell Count 4.56 M/mm3 (4.30-5.90); White Blood Cell Count 6.01 K/mm3 (4.00-11.30)
[2024-07-30 18:25] LABS: Albumin, Blood 3.6 g/dL (3.4-5.0); Albumin/Globulin Ratio 1.1 (0.8-1.8); Bilirubin, Total 0.5 mg/dL (0.1-1.0); Bun/Creatinine Ratio 16.8 (12.0-20.0); Calcium, Blood 8.6 mg/dL (8.5-10.1); Creatinine, Blood 0.95 mg/dL (0.60-1.20); Globulin, Blood 3.4 g/dL (2.2-4.0); Potassium, Blood 3.6 mmol/L (3.5-5.5)
[2024-07-30] MEDS ORDERED: Acetaminophen 500 MG Tab PO ONE (20:45)
[2024-07-30] MEDS ORDERED: Ketorolac Tromethamine 30mg Vial IV ONE (20:45)
[2024-07-30] MEDS ORDERED: Lidocaine 4% 1 Patch TOP ONE (20:45)
[2024-07-30 22:30] VITALS: BP 142/80
[2024-07-30] MEDS ORDERED: LIDO700A20 TOP (22:33)
== END 2024-07-30 22:51 | disposition home or self-care (01) ==
LOC: ER 17:39
PROVIDERS: Student in an Organized Health Care Education/Training Program
DX: S46.911A Strain of unspecified muscle, fascia and tendon at shoulder and upper arm level, right arm, initial encounter (principal); X58.XXXA Exposure to other specified factors, initial encounter; Z79.82 Long term (current) use of aspirin; Z79.02 Long term (current) use of antithrombotics/antiplatelets; Z79.899 Other long term (current) drug therapy; Z88.1 Allergy status to other antibiotic agents; Z88.5 Allergy status to narcotic agent; Z88.0 Allergy status to penicillin; Z88.2 Allergy status to sulfonamides
CPT/HCPCS: 71045; 80053; 83690; 84484; 85025; 93005; 93010; 96374; 99284-25; A9270; J1885